=== PATIENT | female | born 1940 | race Caucasian/White ===

== ENCOUNTER 2016-04-27 05:50 | Emergency (ER) | payer OTHER ==
[~2016-04-27] VITALS: Ht 147.3 cm; Wt 86.2 kg
[~2016-04-27 05:50] MED LIST: ADULT LOW DOSE81 MG PO; ALLOPURINOL 10100 M3 PO; AMBIEN 5 MG TABL5 M1 PO; AVANDIA8 MG PO; BENEFIBER236 GM PO; BISACODYL SUPP10 MG RECTAL; CARDIZEM CD 30300 M1; CELEXA 20 MG TA20 MG PO; CELEXA20 MG PO; CLARITIN10 MG PO; CLEOCIN HCL150 MG PO; CLINDAMYCIN; COLACE100 MG PO; COUMADIN 3 MG TA3 MG PO; COUMADIN 4 MG TA4 M1 PO; COUMADIN 5 MG TA5 M1 PO; DARVOCET-N 1001 EACH PO; DIGOXIN125 MCG PO; DILTIAZEM 24HR180 MG PO; DILTIAZEM 24HR240 MG PO; DILTIAZEM 24HR360 MG PO; DILTIAZEM ER240 M1 PO; DIOVAN320 MG PO; ENOXAPARIN30 MG/0.3 SUBQ; FERRO-TIME325 MG PO; FLEXERIL PO; FOSAMAX 70 MG T70 M1 PO; FUROSEMIDE; GLIPIZIDE ER2.5 MG PO; GLUCOPHAGE1000 MG PO; GLUCOPHAGE500 MG; GLUCOPHAGE500 MG PO; GLUCOTROL10 MG PO; IRON18 MG PO; LASIX 40 MG TAB40 M1 OR; LASIX 40 MG TAB40 M1 PO; LASIX 40 MG TAB40 MG GT; LEVEMIR SUBQ; LEVEMIR100 UNIT/1 SUBQ; LIPITOR 20 MG T20 M1 PO; LOPERAMIDE 2 MG2 M1 PO; LORTAB 5-325 M1 EACH PO; MELOXICAM7.5 MG PO; METFORMIN PO; MEVACOR40 MG; MEVACOR40 MG PO; MOBIC15 MG PO; NOVOLOG100 UNIT/1; NOVOLOG100 UNIT/1 SUBQ; NYAMYC15 GM TOP; OMEPRAZOLE20 M2 PO; ONGLYZA5 MG PO; PERCOCET 7.5-51 EACH PO; PRADAXA150 MG; PRAVACHOL40 MG PO; PROPOXYPHENE HC65 M1 PO; PROTONIX40 MG PO; SPIRONOLACTONE25 M1 PO; TOPROL XL100 MG PO; TYLENOL EX-STR500 M1 PO; TYLENOL EX-STR500 M2 PO; TYLENOL325 MG PO; VENTOLIN17 GM INH; VITAMIN B-12500 MCG PO; VITAMIN D2000 UNIT PO; ZPAK PO
[2016-04-27] MEDS ORDERED: PEPCID20 MG PO (06:04)
[2016-04-27] MEDS ORDERED: ZANAFLEX4 MG PO (06:06)
[2016-04-27] MEDS ORDERED: GLUCAGEN1 MG IM (06:08)
[2016-04-27 07:52] LABS: INR 1.2; PROTIME 12.1 Seconds (9.3-11.4)
== END 2016-04-27 08:10 | disposition home or self-care (01) ==
LOC: ER 05:50
PROVIDERS: Emergency Medicine
DX: S09.90XA Unspecified injury of head, initial encounter (principal); S20.211A Contusion of right front wall of thorax, initial encounter; S50.811A Abrasion of right forearm, initial encounter; S60.812A Abrasion of left wrist, initial encounter; I10 Essential (primary) hypertension; E11.9 Type 2 diabetes mellitus without complications; I25.10 Atherosclerotic heart disease of native coronary artery without angina pectoris; Z90.49 Acquired absence of other specified parts of digestive tract; Z98.890 Other specified postprocedural states; Z88.6 Allergy status to analgesic agent; Z88.1 Allergy status to other antibiotic agents; Z88.5 Allergy status to narcotic agent; Z88.0 Allergy status to penicillin; Z88.8 Allergy status to other drugs, medicaments and biological substances; Z91.018 Allergy to other foods; Z88.2 Allergy status to sulfonamides; W06.XXXA Fall from bed, initial encounter; Y93.89 Activity, other specified; Y92.89 Other specified places as the place of occurrence of the external cause; Y99.8 Other external cause status

== ENCOUNTER 2016-12-14 12:05 | Emergency (ER) | payer OTHER ==
[~2016-12-14] VITALS: Ht 160 cm; Wt 68.0 kg
[~2016-12-14 12:05] MED LIST changes: +GLUCAGEN1 MG IM; +PEPCID20 MG PO; +ZANAFLEX4 MG PO
[2016-12-14 13:41] LABS: HEMATOCRIT 36.9 % (37.0-47.0); HEMOGLOBIN 12.6 gm/dL (12.0-15.0); MANUAL DIFF YES; MCH 31.6 pg (26.0-34.0); MCV 92.7 fL (80.0-100.0); RBC 3.98 mil/uL (4.20-5.00); WBC 7.2 thou/uL (4.0-11.0)
[2016-12-14 13:42] LABS: MCHC 34.1 % (28.0-37.0); PLATELET COUNT 248 thou/uL (150-400); POTASSIUM 4.6 mmol/L (3.5-5.1); RDW 13.6 % (10.5-14.5)
[2016-12-14 13:43] LABS: CALCIUM 9.8 mg/dL (8.5-10.1); CREATININE 2.9 mg/dL (0.6-1.0)
[2016-12-14] MEDS ORDERED: ERYTHROMYCIN500 MG PO (14:03)
[2016-12-14] MEDS ORDERED: KEFLEX500 MG PO (14:06)
== END 2016-12-14 16:41 | disposition home or self-care (01) ==
LOC: ER 12:05
PROVIDERS: Physician Assistant
DX: L03.116 Cellulitis of left lower limb (principal); S80.12XA Contusion of left lower leg, initial encounter; I10 Essential (primary) hypertension; E11.9 Type 2 diabetes mellitus without complications; E78.00 Pure hypercholesterolemia, unspecified; I25.10 Atherosclerotic heart disease of native coronary artery without angina pectoris; M85.80 Other specified disorders of bone density and structure, unspecified site; I48.91 Unspecified atrial fibrillation; Z86.73 Personal history of transient ischemic attack (TIA), and cerebral infarction without residual deficits; Z90.49 Acquired absence of other specified parts of digestive tract; Z86.14 Personal history of Methicillin resistant Staphylococcus aureus infection; Z79.4 Long term (current) use of insulin; Z88.5 Allergy status to narcotic agent; Z88.0 Allergy status to penicillin; Z88.1 Allergy status to other antibiotic agents; Z88.2 Allergy status to sulfonamides; W22.8XXA Striking against or struck by other objects, initial encounter; Y93.89 Activity, other specified; Y92.89 Other specified places as the place of occurrence of the external cause; Y99.8 Other external cause status

== ENCOUNTER 2017-09-03 10:27 | Inpatient (IN) | payer OTHER ==
[~2017-09-03] VITALS: Ht 152.4 cm; Wt 78.5 kg
--- NOTE | ~2017-09-03 | HC ---
[facility] [place] [address] CONSULTATION Name: DANIELLE BAUTISTA Room #: 419-P [facility] IN .R.#: [id number] Admission: 09/03/17 Attend Phys: Mika Fisher MD Discharge: Date of : 41 Report #: [id number] THIS REPORT FOR: //name// CC: Tejas Fisher DATE OF SERVICE: 09/03/2017 REASON FOR CONSULTATION: Right knee wound. HISTORY OF PRESENT ILLNESS: The patient reports falling onto her right knee getting out of the bathroom approximately a week ago. She sustained a wound and reports that it has not been healing over the last week. She reports a history of diabetes, reports her last hemoglobin A1c was 5, reports no significant problems with her blood sugar management. Information obtained from her primary care physician is an INR of 10 approximately a week ago. It is now approximately 2.4 and she was brought in because of increasing redness and a nonhealing right knee wound. REVIEW OF SYSTEMS: NEUROLOGIC: Denies numbness or tingling. MUSCULOSKELETAL: Denies other injuries. PAST MEDICAL HISTORY: Significant for CVAs x 2, congestive heart failure, diabetes mellitus, gastroesophageal reflux disease, hypertension, hypercholesterolemia, coronary artery disease, osteopenia, and atrial fibrillation. PAST SURGICAL HISTORY: She has had a cholecystectomy and 2 D and Cs. SOCIAL HISTORY: She lives in assisted living facility. Denies use of ambulatory aids. Denies drinking alcohol or smoking cigarettes. ALLERGIES: OBTAINED FROM THE PATIENT'S MEDICAL RECORD INCLUDE CODEINE, LEMON OIL, ORANGES AND ISAIAS, PENICILLINS, SULFA, SULFAMETHOXAZOLE, TETRACYCLINE, TRAMADOL, TRIMETHOPRIM, HYDROCODONE, KETOROLAC AND OXYCODONE. LABORATORY STUDIES: On 09/03/2017 show white blood cell count 5.6, hemoglobin 11.3, hematocrit 34.4, platelet count 312. ESR 61. INR is 2.4. PHYSICAL EXAMINATION: GENERAL: She is alert and oriented, interacts appropriately. She is well-developed, well-nourished female in no acute distress. VITAL SIGNS: Most recent vital signs show a heart rate of 64, blood pressure 133/97, pulse oximetry is 93% on room air, respiration rate is 18. EXTREMITIES: Examination of her right lower extremity, she has shown some signs [address] [address] CONSULTATION Name: DANIELLE BAUTISTA Room #: 419-P ADM IN ..#: [id number] Admission: 09/03/17 Attend Phys: Mika Fisher MD Discharge: Date of : 41 Report #: [id number] of stasis dermatitis on her leg. She has a 2+ dorsalis pedis pulse. EHL, FHL, dorsiflexion and plantar flexion are intact. She has sensations intact to light touch throughout of the anterior knee. She has a 4-5 cm wound over the anterior medial aspect of her knee with a large amount of hematoma. There is a rim of cellulitis measuring approximately 3-4 cm around the wound. There is no knee joint effusion. There is no pain with knee range of motion. There is mild tenderness around the cellulitis and there appears to be a thick hematoma with squeezing on the knee. There is no pain with knee or hip range of motion. RADIOGRAPHS: CT scan shows the wound and a fluid collection. IMPRESSION AND PLAN: Right medial knee wound, most likely hematoma with cellulitis. This could represent an abscess, but again most likely is hematoma with cellulitis. At this point, I would recommend surgical debridement with possible dressing changes with possibly eventually a wound VAC placement. I will tentatively place this patient on the schedule for tomorrow pending at least not worsening of her INR and either myself or one of my partners will perform her debridement. I spoke with Dr. Fisher as well. By: [id number] Bethanie Pavon MD /nt
--- NOTE | ~2017-09-03 | EKG ---
[address] [address] ELECTROCARDIOGRAM REPORT Name: DANIELLE BAUTISTA Room #: 419-P ADM IN M.R.#: [id number] Admission: 09/03/17 Attend Phys: Mika Fisher MD Discharge: Date of : 41 Report #: [id number] THIS REPORT FOR: //name// [facility] Test Date: 2017-09-03 Test Time: 17:37:54 Pat Name: DANIELLE BAUTISTA Department: Room: 419 Gender: F Ad Taker: Milka LU : 1940 Requested By: Mika Fisher Order Number: [id number] MD: Aneudy Mcgee Measurements Intervals [place] Rate: 110 P: [place]: QRS: 40 QRSD: 76 T: 59 QT: 326 QTc: 442 Interpretive Statements Atrial fibrillation Poor R wave progression Compared to ECG 12/23/2014 08:28:02 No significant changes Electronically Signed On 09-04-2017 8:41:41 CDT by Aneudy Mcgee [email or web address] <ELECTRONICALLY SIGNED> By: Aneudy Mcgee MD, [facility] 09/04/17 0841 [id number] 36 Aneudy Mcgee MD, FACC /EPI
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
--- NOTE | ~2017-09-03 | D ---
[facility] [place] [address] DISCHARGE SUMMARY Name: DANIELLE BAUTISTA Anthony Room #: 419-P ADM IN M.R.#: [id number] Admission: 09/03/17 Attend Phys: Mika Fisher MD Discharge: Date of : 41 Report #: [id number] THIS REPORT FOR: //name// CC: [facility] Jair Fisher [facility] Bethanie Pavno MD DATE OF SERVICE: 09/06/2017 HOSPITAL COURSE: The patient is a 77-year-old female who was admitted from the Emergency Room after being taken there from her residence at [facility]. She had the following history prior to arrival. Approximately 1 week before admission, she had 2 important events, one was a fall, which may have actually been as long as 2 weeks ago, but approximately a week before, she was found to have an INR of 10 on her Coumadin at 4 mg daily. She had also recently been treated for urinary tract infection with antibiotics. The Coumadin was held and the patient was given vitamin K. Her INR came down to 6 after 48 hours and it finally reached therapeutic range anticoagulation for her chronic atrial fibrillation and Coumadin on the date of admission when her INR was 2.4. The patient developed a large blood blister/wound on the right knee and this is what prompted her transfer to the Emergency Room for further evaluation and subsequently admission. At that time, the patient also had some redness extending lateral and inferior to the wound. The wound was cultured. The wound was debrided in the operating room by Dr. Bethanie Pavon. The patient was also seen in consultation by Infectious Disease specialist, Dr. Jair Reza and by the wound care management specialists. The wound cultures revealed that the patient had methicillin-resistant Staphylococcus aureus, as did her nasal swab. She was treated with intravenous vancomycin during this hospital stay and because of some acute or chronic kidney disease, the dose was being managed by the pharmacist. On the date of discharge, I spoke with Dr. Reza who recommended that the vancomycin be continued for a full course of treatment. I also spoke with the wound management team and they removed her wound VAC today with plans to replace it for 3 times a week changes either Sunday, Sunday and Sunday or Sunday, and Sunday at the [facility] to which she is headed. She is going to [facility]. MEDICATIONS AT THE TIME OF DISCHARGE: As follows: Acetaminophen 650 mg by mouth every 4 hours p.r.n. pain, atorvastatin 10 mg by mouth daily, Celexa [address] [address] DISCHARGE SUMMARY Name: DANIELLE BAUTISTA Room #: 419-P [facility] IN M.R.#: [id number] Admission: 09/03/17 Attend Phys: Mika Fisher MD Discharge: Date of : 41 Report #: [id number] by mouth daily, cholecalciferol 2000 units by mouth daily, docusate sodium 100 mg by mouth twice daily p.r.n. constipation, Lovenox 80 mg daily as a bridging therapy, warfarin at 4 mg daily. Currently, her INR is still at 1 as of today. Furosemide 80 mg by mouth every morning, Glucagon recombinant 1 mg IM p.r.n. blood sugars less than 70. Glucose tablets 1-2 tablets by mouth p.r.n. glucose less than 70. She is on a sliding scale of low intensity of Humalog before meals. It is not being tested for at bedtime, metoprolol tartrate 50 mg by mouth twice daily, nitroglycerin sublingual 0.4 mg q. 5 minutes p.r.n. chest pain up to 3 times prior to sending the patient to the Emergency Room for further evaluation and treatment. Polyethylene glycol 17 g in a glass of water or juice by mouth twice daily, warfarin 4 mg by mouth daily at 1800 hours, Zanaflex 4 mg by mouth twice daily, bisacodyl suppositories 10 mg per rectum at bedtime p.r.n. constipation and vancomycin 750 mg IV q.24h. or as guided by serial trough levels. DISCHARGE DIAGNOSES: 1. Full thickness skin wound infected with methicillin-resistant Staphylococcus aureus. 2. Excessive anticoagulation with warfarin. 3. Type 2 diabetes mellitus. 4. Hypertension. 5. Greater than 60 pounds weight loss in the last year, intentionally. 6. Constipation. 7. History of stroke x 2 in the remote past. 8. Vitamin D deficiency. 9. Depression. 10. MULTIPLE DRUG ALLERGIES OR INTOLERANCES THAT INCLUDE CODEINE, LEMON OIL, ORANGES, PENICILLIN, SULFA, TETRACYCLINE, TRAMADOL, TRIMETHOPRIM, HYDROCODONE BITARTRATE, KETOROLAC TROMETHAMINE, OXYCODONE. It is my understanding the patient is going to a [facility] facility with her ultimate plan being to return to [facility]. I would be happy to be assumed management of her day to day care when she returns to [facility]. It is my understanding her photo lab specialist, Dr. Ahn and Dr. High will be following with her and managing her right knee wound VAC during her stay at the [facility]. She will be on a diabetic diet. She is to have a followup CBC and blood chemistry at least weekly. Please note, she had an A1c that was 8.5 during this hospitalization. By: [id number] Mika Fisher MD /nt
--- NOTE | ~2017-09-03 | HC ---
[facility] [place] [address] CONSULTATION Name: DANIELLE BAUTISTA Room #: 419-P [facility] IN .R.#: [id number] Admission: 09/03/17 Attend Phys: Mika Fisher MD Discharge: Date of : 41 Report #: [id number] THIS REPORT FOR: //name// CC: Tejas Fisher DATE OF SERVICE: 09/04/2017 ATTENDING PHYSICIAN: Mika Fisher MD REASON FOR CONSULTATION: Positive blood culture. HISTORY OF PRESENT ILLNESS: The patient is a 77-year-old white woman, resident of a local correction for the last 4 years. The patient received oral anticoagulation in view of atrial fibrillation and previous CVA that left her with some right-sided weakness. Five days prior to admission, suffered a fall and trauma to the knee where she developed a hematoma and skin necrosis. The patient's INR was elevated. After, I believe, some vitamin K, this drops to 2.4. The patient's workup included blood cultures x 2 and 1 out of 2 samples revealed gram-positive cocci then ID opinion requested. The patient scheduled to have the hematoma, right knee, drained by orthopedic surgeon. She is in no distress whatsoever. Denies having had fevers, which then brings to as to why she had blood culture obtained. PAST MEDICAL HISTORY: Diabetes mellitus type 2. Morbid obesity. History of 60 pounds weight loss. Status post cholecystectomy, appendectomy. Chronic atrial fibrillation. Embolic CVAs. Recent trauma, right knee hematoma formation in a patient on oral anticoagulation. DRUG ALLERGIES: CODEINE, PENICILLIN, SULFA, TETRACYCLINE, BACTRIM, TRAMADOL, OXYCODONE. MEDICATIONS: The patient is currently on treatment with vancomycin loading dose and 750 mg IV daily thereafter, topical sodium hypochlorite, atorvastatin, citalopram, cholecalciferol, furosemide, metoprolol, tizanidine, bisacodyl, polyethylene glycol, insulin lispro per sliding scale, docusate, p.r.n. glucose, glucagon, nitroglycerin, saline, acetaminophen. SOCIAL HISTORY: Retired nurse. Never smoked or drank alcohol. Single. No children. Resides in local correction for 4 years. REVIEW OF SYSTEMS: Noncontributory. Denies fever. Denies pain, right knee. PHYSICAL EXAMINATION: GENERAL: Well-developed woman, not toxic looking, no distress. [facility] [address] [place] [address] CONSULTATION Name: DANIELLE BAUTISTA Room #: 419-P [facility] IN [facility]#: [id number] Admission: 09/03/17 Attend Phys: Mika Fisher MD Discharge: Date of : 41 Report #: [id number] VITAL SIGNS: Afebrile since admission, temperature 98, pulse 18, BP 165/105. Height 5 feet, weight 173 pounds. HEENMT: Within range. NECK: Supple. BREASTS: Deferred. LUNGS: Clear. HEART: S1, S2, irregular rhythm--atrial fibrillation. ABDOMEN: Soft, no masses or megaly. PELVIC AND RECTAL: Deferred. EXTREMITIES: Skin necrosis, right knee area with obvious hematoma underlying the wound. There is no redness or increased temperature of right leg. NEUROLOGIC: Grossly within normal limits. She reports some weakness, right side, left over from a previous CVA. LABORATORY DATA: Sodium 137, potassium 4.6, BUN 59, creatinine 2, glucose 165. Hemoglobin A1c elevated. Lactic acid normal. CRP mildly elevated at 21 mg/L. Protime 24.7, down to 17.4 today. White blood cell count normal at 5.6, hemoglobin 11.3, platelets 317,000. White blood cell count differential, 81% neutrophils. ESR 61 mm per hour. It was normal on 06/26/2012, if that has any bearing on what is going on now. MICROBIOLOGY DATA: On 09/03, a couple of blood cultures were obtained and 1 of 2 samples revealed gram-positive cocci. They do not specify whether it is streptococcus looking light germs or staphylococcus looking like germs. RADIOLOGY EVALUATION: A CT scan of the right knee revealed large soft tissue ulcer and underlying hematoma. No bony abnormalities. Chest x-ray: No acute cardiopulmonary process. Electrocardiogram revealed atrial fibrillation, rate controlled. ASSESSMENT: 1. Single positive blood culture, undetermined significance, possible contaminant. 2. Posttraumatic right knee hematoma with skin necrosis and ulcer formation. 3. Chronic anticoagulation for chronic atrial fibrillation and previous history of cerebrovascular accident. 4. Diabetes mellitus. 5. Azotemia. SUGGESTIONS: Recommend proceed with evacuation of hematoma as already planned. For time being, continue coverage with vancomycin but as of this time, my main impression is that we are dealing with contaminated blood culture and not true infection. Obviously, culture of the right knee wound must be undertaken during surgery. [facility] [address] [place] [address] CONSULTATION Name: DANIELLE BAUTISTA Room #: 419-P [facility] IN M.R.#: [id number] Admission: 09/03/17 Attend Phys: Mika Fisher MD Discharge: Date of : 41 Report #: [id number] Fisher, thank you for requesting my suggestions. <ELECTRONICALLY SIGNED> By: Jair Reza MD 09/05/17 0859 1130 2035 Jair Reza MD /nt
--- NOTE | ~2017-09-03 | HC ---
[facility] [place] [address] CONSULTATION Name: DANIELLE BAUTISTA Room #: 419-P ADM IN M.R.#: [id number] Admission: 09/03/17 Attend Phys: Mika Fisher MD Discharge: Date of : 42 Report #: [id number] THIS REPORT FOR: //name// CC: Tejas Fisher DATE OF SERVICE: 09/03/2017 WOUND CARE CONSULTATION REASON FOR CONSULTATION: Contusion of right knee with hematoma and pressure ulcer with underlying hematoma of right knee with cellulitis. HISTORY OF PRESENT ILLNESS: The patient is a very pleasant 77-year-old woman, with diabetes mellitus type 2, history of cerebrovascular accident, who is on Coumadin. About a week ago, she fell, struck her right knee, has developed an open wound of that knee, which is sore and somewhat red. X-rays show no fracture. The patient has been seen by Dr. Bethanie Pavon who notes open wound to the right knee with an underlying hematoma. Dr. Pavon does plan to take the patient to the operating room tomorrow for hematoma evacuation and then consideration of a wound VAC. The patient is on IV antibiotics for some cellulitis of the knee. X-ray showed no fracture or dislocation of the knee. CT scan shows collection of fluid or hematoma over the patella. PAST MEDICAL HISTORY: Diabetes mellitus type 2, history of cerebrovascular accident, warfarin anticoagulation. ALLERGIES: SULFA, TETRACYCLINE, PENICILLIN. LABORATORY DATA: White blood count 5.6. Electrolytes normal. Creatinine 2.3. PAST MEDICAL HISTORY: Coronary artery disease, hypercholesterolemia, non-insulin diabetes type 2, history of stroke. PAST SURGICAL HISTORY: Cholecystectomy, appendectomy, cataract surgery, cardiac catheterization, back and pelvic fracture in the past. REVIEW OF SYSTEMS: Noncontributory. MEDICATIONS: See chart. PHYSICAL EXAMINATION: GENERAL: Shows a pleasant, alert, elderly woman. VITAL SIGNS: Stable. She is afebrile. HEENT: Mucous membranes are moist. HEART: Shows regular rate and rhythm. [address] [address] CONSULTATION Name: LILYDANIELLE Anthony Room #: 419-P [facility].#: [id number] Admission: 09/03/17 Attend Phys: Mika Fisher MD Discharge: Date of : 42 Report #: [id number] ABDOMEN: Soft. EXTREMITIES: Shows a 2 x 2 cm open wound anterior of the right knee over the patella. There is minimal cellulitis of the skin around the wound. At the base of the wound, there is a dark hematoma with partial liquefaction. Knee is fully mobile. Cellulitis is minimal. IMPRESSION: 1. Diabetes mellitus, type 2 with skin complication. 2. Status post cerebrovascular accident. 3. History of coronary artery disease. 4. Contusion of right knee with underlying hematoma and pressure necrosis causing an ulcer over the anterior knee over the patella. Mild cellulitis. PLAN: Continue vancomycin. Orthopedics, Dr. Pavon and associates plan to take the patient to the operating room tomorrow for evacuation of the hematoma, quarter-strength Dakin's dressing will be done and then, we will assess and likely place a wound VAC on this wound. Wound care team will follow. <ELECTRONICALLY SIGNED> By: Winston Robles MD 09/04/17 [id number] [id number] Winston Robles MD /nt
--- NOTE | ~2017-09-03 | O ---
[facility] [place] [address] OPERATIVE REPORT Name: DANIELLE BAUTISTA Room #: 419-P [facility] IN M.R.#: [id number] Admission: 09/03/17 Attend Phys: Mika Fisher MD Discharge: Date of : 42 Report #: [id number] THIS REPORT FOR: //name// CC: Tejas Fisher PREOPERATIVE DIAGNOSIS: Right anterior knee hematoma. POSTOPERATIVE DIAGNOSIS: Right anterior knee hematoma. PROCEDURE PERFORMED: Right anterior knee hematoma evacuation. SURGEON: Bethanie Pavon MD ANESTHESIA: General mask anesthesia. ESTIMATED BLOOD LOSS: Minimal. TOURNIQUET TIME: 11 minutes. COMPLICATIONS: None. CONDITION: Stable. DISPOSITION: Recovery room. INDICATIONS: The patient is a 77-year-old female with the above-mentioned diagnosis. She elects for operative treatment. The risks, benefits, alternatives, complications were discussed to include but were not limited to recurrence of the hematoma, wound healing problems and infection. Informed consent was obtained. The correct extremity was identified and labeled by myself after verbal confirmation of the patient as well as visual confirmation and signed informed consent. DESCRIPTION OF PROCEDURE: The patient was brought back to the operating room and placed on the operating table in supine position. She received preoperative antibiotics. Tourniquet was placed over padding on the patient's right lower extremity. Right lower extremity was sterilely prepped and draped in the usual fashion. A final time-out was taken to verify the correct patient, operative procedure, operative site, all concurred. The leg was elevated, but was not exsanguinated and then tourniquet inflated. Next, a 3 cm hematoma on the anterior medial aspect of the knee was evacuated. There was a large amount of hematoma subcutaneously. After using a curette and a rongeur as well as my finger to evacuate the hematoma, the defect was measured at 10 cm wide x 5 cm longitudinal and 4 cm deep. The wound was thoroughly irrigated with 3 liters of antibiotic [address] [address] OPERATIVE REPORT Name: LILYDANIELLE Anthony Room #: 419-P [facility] IN [facility]#: [id number] Admission: 09/03/17 Attend Phys: Mika Fisher MD Discharge: Date of : 42 Report #: [id number] saline using a Pulsavac. The wound was then loosely packed with a Kerlix gauze and a Dakin solution and then ABD and other gauze. The tourniquet was deflated. All toes were pink with brisk capillary refill at the conclusion of the case after deflation of the tourniquet, all sponge, needle counts were correct. The patient was transferred to postoperative recovery room in stable condition. By: [id number] Bethanie Pavon MD /nt
[~2017-09-03 10:27] MED LIST changes: +ERYTHROMYCIN500 MG PO; +KEFLEX500 MG PO
[2017-09-03 10:30] VITALS: BP 134/71
[2017-09-03 10:58] LABS: ABSOLUTE NEUTROPHILS 4.5 thou/uL (1.4-8.2); BASOPHILS 0.3 % (0.0-2.0); EOSINOPHILS 2.6 % (0.0-3.0); HEMATOCRIT 34.4 % (37.0-47.0); HEMOGLOBIN 11.3 gm/dL (12.0-15.0); LYMPHOCYTES 9.1 % (24.0-44.0); MCH 30.7 pg (26.0-34.0); MCHC 32.9 g/dL (28.0-37.0); MCV 93.5 fL (80.0-100.0); PLATELET COUNT 317 thou/uL (150-400); RBC 3.68 mil/uL (4.20-5.00); RDW 15.2 % (10.5-14.5); WBC 5.6 thou/uL (4.0-11.0)
[2017-09-03 11:01] LABS: CALCIUM 9.3 mg/dL (8.5-10.1); CREATININE 2.3 mg/dL (0.6-1.0); POTASSIUM 4.6 mmol/L (3.5-5.1)
[2017-09-03 11:28] LABS: APTT 45.8 Seconds (24.5-32.8); INR 2.4; PROTIME 24.7 Seconds (9.3-11.4)
[2017-09-03 13:18] VITALS: BP 118/97
[2017-09-03 15:05] VITALS: BP 133/97
[2017-09-03] MEDS ORDERED: CITALOPRAM HBR40 MG PO (15:13)
[2017-09-03] MEDS ORDERED: LOVASTATIN 20 M20 MG PO (15:14)
[2017-09-03] MEDS ORDERED: AMARYL4 MG PO (15:14)
[2017-09-03] MEDS ORDERED: VITAMIN D2000 UNIT PO (15:15)
[2017-09-03] MEDS ORDERED: METFORMIN HCL500 MG PO (15:15)
[2017-09-03] MEDS ORDERED: LOPRESSOR50 PO (15:15)
[2017-09-03 16:10] VITALS: BP 162/66
[2017-09-03 19:15] VITALS: BP 149/81
[2017-09-04 00:05] LABS: GLYCOHEMOGLOBIN (HGB A1C) 8.6 % (4.8-5.6)
[2017-09-04 04:20] VITALS: BP 139/76
[2017-09-04 05:08] LABS: CALCIUM 8.7 mg/dL (8.5-10.1); INR 1.7; MAGNESIUM 1.9 mg/dL (1.8-2.4); POTASSIUM 4.6 mmol/L (3.5-5.1); PROTIME 17.4 Seconds (9.3-11.4)
[2017-09-04 06:02] LABS: URINE BILIRUBIN NEGATIVE (Negative); URINE BLOOD TRACE (Negative); URINE CLARITY CLEAR; URINE COLOR YELLOW; URINE GLUCOSE-RANDOM* NEGATIVE (Negative); URINE KETONES NEGATIVE (Negative); URINE LEUKOCYTES-REFLEX NEGATIVE (Negative); URINE NITRITE-REFLEX NEGATIVE (Negative); URINE PROTEIN (DIPSTICK) 1+ (Negative); URINE SPECIFIC GRAVITY 1.015 (1.005-1.035); URINE UROBILINOGEN 0.2 E.U./dl (0.2-1.0)
[2017-09-04 06:13] LABS: CASTS None Seen /LPF (None Seen); MUCUS None Seen strn/LPF (None Seen); SQUAMOUS 0-3 Few /LPF (0-3); URINE WBC-REFLEX None Seen /HPF (0-5)
[2017-09-04 06:14] LABS: BACTERIA-REFLEX None Seen /HPF (None Seen); CRYSTALS None Seen /LPF (None Seen); URINE RBC 0-2 Rare /HPF (0-2)
[2017-09-04 07:14] VITALS: BP 165/105
[2017-09-04 13:23] VITALS: BP 116/70
[2017-09-04 16:13] VITALS: BP 144/76
[2017-09-04 19:20] VITALS: BP 142/90
[2017-09-05 03:24] VITALS: BP 113/41
[2017-09-05 06:08] LABS: HEMATOCRIT 29.1 % (37.0-47.0); HEMOGLOBIN 9.4 gm/dL (12.0-15.0)
[2017-09-05 06:18] LABS: POTASSIUM 4.7 mmol/L (3.5-5.1)
[2017-09-05 06:21] LABS: INR 1.1; PROTIME 11.4 Seconds (9.3-11.4)
[2017-09-05 07:41] VITALS: BP 128/64
[2017-09-05 19:32] VITALS: BP 138/59
[2017-09-06 03:40] VITALS: BP 140/80
[2017-09-06 06:09] LABS: PROTIME 10.7 Seconds (9.3-11.4)
[2017-09-06 09:42] VITALS: BP 149/99
[2017-09-06] MEDS ORDERED: NITROGLYCERIN0.4 MG SUBLING (13:42)
[2017-09-06] MEDS ORDERED: ENOXAPARIN80 MG/0.1 SUBQ (13:42)
[2017-09-06] MEDS ORDERED: BISAC-EVAC10 MG RECTAL (13:43)
[2017-09-06] MEDS ORDERED: GLUCOSE4 GM PO (13:43)
[2017-09-06] MEDS ORDERED: MIRALAX17 GM PO (13:44)
[2017-09-06] MEDS ORDERED: COLACE 100 MG100 MG PO (13:44)
[2017-09-06] MEDS ORDERED: NOVOLOG100 UNIT/1 SUBQ (13:48)
[2017-09-06] MEDS ORDERED: GLUCAGON HCL1 MG IM (13:48)
== END 2017-09-06 16:16 | DRG 603 ==
LOC: ER 10:27 → 4E 15:17
PROVIDERS: Internal Medicine; Nurse Practitioner; Orthopaedic Surgery Hand Surgery; Physician Assistant
PROC: 0S9C3ZZ Drainage of Right Knee Joint, Percutaneous Approach (ICD-10-PCS; principal; 2017-09-04)
DX: L03.115 Cellulitis of right lower limb (principal); N17.9 Acute kidney failure, unspecified; I13.0 Hypertensive heart and chronic kidney disease with heart failure and stage 1 through stage 4 chronic kidney disease, or unspecified chronic kidney disease; S80.01XA Contusion of right knee, initial encounter; N18.9 Chronic kidney disease, unspecified; E11.65 Type 2 diabetes mellitus with hyperglycemia; E11.22 Type 2 diabetes mellitus with diabetic chronic kidney disease; Z66 Do not resuscitate; I25.10 Atherosclerotic heart disease of native coronary artery without angina pectoris; F32.9 Major depressive disorder, single episode, unspecified; M85.80 Other specified disorders of bone density and structure, unspecified site; K21.9 Gastro-esophageal reflux disease without esophagitis; I50.9 Heart failure, unspecified; E78.00 Pure hypercholesterolemia, unspecified; I48.2 Chronic atrial fibrillation; A49.02 Methicillin resistant Staphylococcus aureus infection, unspecified site; K59.00 Constipation, unspecified; S81.001A Unspecified open wound, right knee, initial encounter; X58.XXXA Exposure to other specified factors, initial encounter; Y93.89 Activity, other specified; Y92.89 Other specified places as the place of occurrence of the external cause; Y99.8 Other external cause status; Z86.73 Personal history of transient ischemic attack (TIA), and cerebral infarction without residual deficits; Z90.49 Acquired absence of other specified parts of digestive tract; Z98.49 Cataract extraction status, unspecified eye; Z88.6 Allergy status to analgesic agent; Z88.1 Allergy status to other antibiotic agents; Z88.0 Allergy status to penicillin; Z88.2 Allergy status to sulfonamides; Z88.8 Allergy status to other drugs, medicaments and biological substances; Z79.01 Long term (current) use of anticoagulants
CPT/HCPCS: 10783; 50010; 50101; 50386; 53078; 57091; 57103; 62110; 62900; 70005

== ENCOUNTER → 2017-10-08 | Outpatient (CLI) | payer OTHER ==
[~2017-10-08] MED LIST changes: +AMARYL4 MG PO; +BISAC-EVAC10 MG RECTAL; +CITALOPRAM HBR40 MG PO; +COLACE 100 MG100 MG PO; +ENOXAPARIN80 MG/0.1 SUBQ; +GLUCAGON HCL1 MG IM; +GLUCOSE4 GM PO; +LOPRESSOR50 PO; +LOVASTATIN 20 M20 MG PO; +METFORMIN HCL500 MG PO; +MIRALAX17 GM PO; +NITROGLYCERIN0.4 MG SUBLING
== END ==
LOC: HYPER 07:28
DX: S81.001A Unspecified open wound, right knee, initial encounter (principal); E11.622 Type 2 diabetes mellitus with other skin ulcer; L97.811 Non-pressure chronic ulcer of other part of right lower leg limited to breakdown of skin; I48.91 Unspecified atrial fibrillation; I10 Essential (primary) hypertension; K21.9 Gastro-esophageal reflux disease without esophagitis; E78.5 Hyperlipidemia, unspecified; F03.90 Unspecified dementia, unspecified severity, without behavioral disturbance, psychotic disturbance, mood disturbance, and anxiety; F32.9 Major depressive disorder, single episode, unspecified; Z79.01 Long term (current) use of anticoagulants; Z79.84 Long term (current) use of oral hypoglycemic drugs; Z86.73 Personal history of transient ischemic attack (TIA), and cerebral infarction without residual deficits; X58.XXXA Exposure to other specified factors, initial encounter; Y93.89 Activity, other specified; Y92.89 Other specified places as the place of occurrence of the external cause; Y99.8 Other external cause status

== ENCOUNTER 2017-11-01 13:45 | Emergency (ER) | payer OTHER ==
[~2017-11-01] VITALS: Ht 152.4 cm; Wt 73.9 kg
[2017-11-01] MEDS ORDERED: KEFLEX500 M1 PO (15:28)
== END 2017-11-01 16:08 | disposition home or self-care (01) ==
LOC: ER 13:45
DX: S81.812A Laceration without foreign body, left lower leg, initial encounter (principal); I10 Essential (primary) hypertension; E11.9 Type 2 diabetes mellitus without complications; E78.00 Pure hypercholesterolemia, unspecified; I25.10 Atherosclerotic heart disease of native coronary artery without angina pectoris; I48.91 Unspecified atrial fibrillation; Z90.49 Acquired absence of other specified parts of digestive tract; Z95.811 Presence of heart assist device; Z88.0 Allergy status to penicillin; Z88.1 Allergy status to other antibiotic agents; Z88.5 Allergy status to narcotic agent; Z88.8 Allergy status to other drugs, medicaments and biological substances; W22.09XA Striking against other stationary object, initial encounter; Y93.89 Activity, other specified; Y92.89 Other specified places as the place of occurrence of the external cause; Y99.8 Other external cause status

== ENCOUNTER → 2017-11-05 | Outpatient (CLI) | payer OTHER ==
[~2017-11-05] MED LIST changes: +KEFLEX500 M1 PO
== END ==
LOC: HYPER 10-22 07:05
DX: E11.622 Type 2 diabetes mellitus with other skin ulcer (principal); L97.811 Non-pressure chronic ulcer of other part of right lower leg limited to breakdown of skin; S81.802A Unspecified open wound, left lower leg, initial encounter; I48.91 Unspecified atrial fibrillation; I69.991 Dysphagia following unspecified cerebrovascular disease; I10 Essential (primary) hypertension; M79.81 Nontraumatic hematoma of soft tissue; K21.9 Gastro-esophageal reflux disease without esophagitis; E78.5 Hyperlipidemia, unspecified; F03.90 Unspecified dementia, unspecified severity, without behavioral disturbance, psychotic disturbance, mood disturbance, and anxiety; Z79.01 Long term (current) use of anticoagulants; Z79.84 Long term (current) use of oral hypoglycemic drugs; X58.XXXA Exposure to other specified factors, initial encounter; Y93.89 Activity, other specified; Y92.89 Other specified places as the place of occurrence of the external cause; Y99.8 Other external cause status